=== PATIENT | female | born 1990 | race Caucasian/White ===

== ENCOUNTER → 2017-09-09 | Outpatient (CLI) | payer OTHER ==
[2017-09-12 04:12] LABS: CHLAMYDIA TRACHOMATIS, NAA Negative (Negative); NEISSERIA GONORRHOEAE, NAA Negative (Negative)
== END ==
LOC: LAB SHORT 15:23 → LAB 15:23
PROVIDERS: Obstetrics & Gynecology
DX: Z11.3 Encounter for screening for infections with a predominantly sexual mode of transmission (principal)
CPT/HCPCS: 87491; 87591

== ENCOUNTER → 2017-12-18 | Outpatient (CLI) | payer OTHER ==
[2017-12-19 09:19] LABS: Candida species (DNA Probe) Negative (NEGATIVE); G. vaginalis (DNA Probe) Positive (NEGATIVE); T. vaginalis (DNA Probe) Negative (NEGATIVE)
== END | disposition home or self-care (01) ==
LOC: LAB 18:05 → LAB SHORT 18:05
PROVIDERS: Obstetrics & Gynecology
DX: N76.0 Acute vaginitis (principal)
CPT/HCPCS: 87480; 87510; 87660

== ENCOUNTER → 2019-05-18 | Outpatient (CLI) | payer OTHER ==
[~2019-05-18] MED LIST: IBUP800 PO; Percocet 5-3251 EACH PO; RANI150EL PO; Verotin-Gr Cap1 EACH PO
[2019-05-20 14:09] LABS: HPV 16 Negative (Negative); HPV 18 Negative (Negative); HPV OTHER HR TYPES Negative (Negative)
== END | disposition home or self-care (01) ==
LOC: LAB 18:10 → LAB SHORT 18:10
PROVIDERS: Family Medicine
DX: Z12.4 Encounter for screening for malignant neoplasm of cervix (principal)
CPT/HCPCS: 87624; G0123

== ENCOUNTER 2020-08-14 18:40 | Inpatient (IN) | payer OTHER ==
[~2020-08-14] VITALS: Ht 165.1 cm; Wt 75.2 kg
[2020-08-14 19:12] LABS: BASOPHILS ABSOLUTE AUTO 0.09 K/mm3 (0.00-0.23); BASOPHILS PERCENT AUTO 1 % (0-2); EOSINOPHILS ABSOLUTE AUTO 0.47 K/mm3 (0.00-0.68); EOSINOPHILS PERCENT AUTO 3 % (0-6); Hematocrit 46.6 % (33.0-51.0); Hemoglobin 15.3 g/dL (11.5-16.0); IMMATURE GRAN ABSOLUTE AUTO 0.05 K/mm3 (0.00-0.10); IMMATURE GRAN PERCENT AUTO 0 % (0-1); LYMPHOCYTES PERCENT AUTO 11 % (21-46); MONOCYTES ABSOLUTE AUTO 0.83 K/mm3 (0.16-1.47); MONOCYTES PERCENT AUTO 6 % (4-13); Mean Corpuscular HGB 28.8 pg (26.0-34.0); Mean Corpuscular HGB Conc 32.8 g/dL (31.5-36.5); Mean Corpuscular Volume 88 fL (80-100); Mean Platelet Volume 9.4 fL (9.1-12.4); NEUTROPHILS ABSOLUTE AUTO 12.05 K/mm3 (1.96-9.15); NEUTROPHILS PERCENT AUTO 80 % (41-73); Platelet Count 407 K/mm3 (150-400); RDW Standard Deviation 44.7 fL (35.1-46.3); Red Blood Cell Count 5.31 M/mm3 (3.80-5.20); White Blood Cell Count 15.09 K/mm3 (4.00-11.30)
[2020-08-14 19:13] LABS: PCO2 Arterial 48.3 mmHg (35-45); pH Blood Arterial 7.36 (7.35-7.45)
[2020-08-14 19:14] LABS: PO2 Arterial 75.5 mmHg (80-100)
[2020-08-14 19:27] LABS: Alanine Aminotransfer (ALT/SGP 29 U/L (12-78); Albumin, Blood 4.7 g/dL (3.4-5.0); Albumin/Globulin Ratio 1.2 (0.8-1.8); Alk Phos 81 U/L (50-136); Anion Gap 8 mmol/L (6-16); Aspartate Aminotrans (AST/SGOT 19 U/L (12-37); Bilirubin, Total 0.3 mg/dL (0.1-1.0); Blood Urea Nitrogen 14 mg/dL (8-24); Bun/Creatinine Ratio 19.3 (12.0-20.0); CO2, Blood 27 mmol/L (21-32); Calcium, Blood 9.6 mg/dL (8.5-10.1); Chloride, Blood 105 mmol/L (98-108); Creatinine, Blood 0.72 mg/dL (0.40-1.00); Globulin, Blood 3.8 g/dL (2.2-4.0); Glomerular Filtration Rate >60 (60-); Glucose, Blood 106 mg/dL (70-99); Potassium, Blood 3.8 mmol/L (3.5-5.5); Sodium, Blood 140 mmol/L (136-145); Total Protein, Blood 8.5 g/dL (6.4-8.2); Troponin I 0.069 ng/mL (0.000-0.040)
[2020-08-14] MEDS ORDERED: VITAMIN D32000 UNI1 PO (19:56)
[2020-08-14] MEDS ORDERED: Hair, Skin & N1 EACH PO (19:57)
[2020-08-14] MEDS ORDERED: MAGNESIUM OXID500 MG PO (19:57)
[2020-08-15 01:11] LABS: Adenovirus Not Detected (NOT DETECT); Bordetella pertussis Not Detected (NOT DETECT); Chlamydophila pneumoniae Not Detected (NOT DETECT); Coronavirus 229E Not Detected (NOT DETECT); Coronavirus HKU1 Not Detected (NOT DETECT); Coronavirus NL63 Not Detected (NOT DETECT); Coronavirus OC43 Not Detected (NOT DETECT); Human Metapneumovirus Not Detected (NOT DETECT); Human Rhinovirus/Enterovirus Not Detected (NOT DETECT); Influenza A/2009-H1 Not Detected (NOT DETECT); Influenza A/H1 Not Detected (NOT DETECT); Influenza A/H3 Not Detected (NOT DETECT); Influenza B Not Detected (NOT DETECT); Mycoplasma pneumoniae Not Detected (NOT DETECT); Parainfluenza Virus 1 Not Detected (NOT DETECT); Parainfluenza Virus 2 Not Detected (NOT DETECT); Parainfluenza Virus 3 Not Detected (NOT DETECT); Parainfluenza Virus 4 Not Detected (NOT DETECT); Respiratory Syncytial Virus Not Detected (NOT DETECT); SARS-Cov-2 (COVID-19), BioFire Not Detected (NOT DETECT)
--- NOTE | 2020-08-15 06:31 | NUR ---
PCU ADMIT / SHIFT SUMMARY PT BROUGHT TO PCU-04 BY SAY FROM ER @ APPROX 0000. PT A&O X4, ABLE TO STAND AND INDEPENDENTLY AMBULATE FROM [facility] TO PCU BED. PT REPORTS BEING SOB. SPO2 > 92% ON 4L NC. PT REPORTS RA @ BASELINE W/ NO PRIOR RESP CONDITIONS. PT LUNG SOUNDS W/ EXP WHEEZE BILAT LOWER LOBES. RT TO RM PROVIDING BREATHING TX. PT VSS. MONITOR SHOWING SR-ST, HR 80's-110's. PT TEARFUL, REPORTING THIS NIGHT BEING FIRST NIGHT AWAY FROM HER 2 YR OLD SON. PT HOPEFUL TO DISCHARGE HOME TO & SON QUICKLY. PT REPORTS IMPROVEMENT IN BREATHING. WILL CONTINUE TO MONITOR & PROVIDE CARE UNTIL REPORT OFF TO DAY SHIFT RN.
[2020-08-15 07:50] LABS: BASOPHILS ABSOLUTE AUTO 0.01 K/mm3 (0.00-0.23); BASOPHILS PERCENT AUTO 0 % (0-2); EOSINOPHILS ABSOLUTE AUTO 0.01 K/mm3 (0.00-0.68); EOSINOPHILS PERCENT AUTO 0 % (0-6); Hematocrit 39.4 % (33.0-51.0); Hemoglobin 12.9 g/dL (11.5-16.0); IMMATURE GRAN ABSOLUTE AUTO 0.04 K/mm3 (0.00-0.10); IMMATURE GRAN PERCENT AUTO 0 % (0-1); LYMPHOCYTES PERCENT AUTO 3 % (21-46); MONOCYTES ABSOLUTE AUTO 0.08 K/mm3 (0.16-1.47); MONOCYTES PERCENT AUTO 1 % (4-13); Mean Corpuscular HGB 28.7 pg (26.0-34.0); Mean Corpuscular HGB Conc 32.7 g/dL (31.5-36.5); Mean Corpuscular Volume 88 fL (80-100); Mean Platelet Volume 9.6 fL (9.1-12.4); NEUTROPHILS ABSOLUTE AUTO 11.14 K/mm3 (1.96-9.15); NEUTROPHILS PERCENT AUTO 95 % (41-73); Platelet Count 306 K/mm3 (150-400); RDW Standard Deviation 44.8 fL (35.1-46.3); Red Blood Cell Count 4.49 M/mm3 (3.80-5.20); White Blood Cell Count 11.68 K/mm3 (4.00-11.30)
--- NOTE | 2020-08-15 17:36 | NUR ---
SHIFT SUMMARY; ASSUMED CARE AT 0700, REPORT FROM KALA SEVILLA. A/A/OX4 DURING SHIFT. 3L 02 VIA NC DECREASED TO RA WITH SATS MAINTAINING >94%. BREATHING TREATMENTS TODAY NEEDED. L/S CLEAR IN UPPER LOBES WITH MINIMAL WHEEZE IN LOWER LOBES. INDEPENDANT IN ROOM, STATUS CHANGED TO MEDICAL TODAY. VSS, WILL CONTINUE TO MONITOR AND TREAT UNTIL CHANGE OF SHIFT.
--- NOTE | 2020-08-16 02:43 | NUR ---
SHIFT SUMMARY: RESPIRATORY FAILURE PATIENT IS ALERT AND ORIENTED X4 WHILE AWAKE. PATIENT HAS BEEN ASLEEP MAJORITY OF THE SHIFT BUT IS EASILY AROUSABLE. HER HEART RATE DOES INCREASE BUT SHORTLY AFTER BREATHING TREATMENTS OR IV STEROIDS THEN RATE GOES TO WNL. OTHERWISE, VITAL SIGNS ARE WNL AND IS ON RA WITH OXYGEN SATS >90%. PATIENT IS VOIDING AND TOLERATING PO INTAKE. SHE CALLS APPROPRIATELY. CALL LIGHT WITHIN REACH. SHE IS CURRENTLY SLEEPING IN BED WITH EVEN/EQUAL RESP WITH HER BIOX ON. THE PLAN IS TO CONTINUE RESPIRATORY THERAPY CARE TO IMPROVE LUNG CAPACITY.
[2020-08-16] MEDS ORDERED: ALBU2.5V5 INH (09:19)
[2020-08-16] MEDS ORDERED: AZIT500 PO (09:19)
[2020-08-16] MEDS ORDERED: ALBU90OI INH (09:57)
== END 2020-08-16 11:00 | disposition home or self-care (01) | DRG 189 ==
LOC: ER 18:40 → PCU 18:41
PROVIDERS: Emergency Medicine; Nurse Practitioner Acute Care; Physician Assistant; ADMIT Internal Medicine
DX: J96.01 Acute respiratory failure with hypoxia (principal); J45.901 Unspecified asthma with (acute) exacerbation; Z20.822 Contact with and (suspected) exposure to COVID-19; R79.89 Other specified abnormal findings of blood chemistry; D72.829 Elevated white blood cell count, unspecified; R50.9 Fever, unspecified; Z87.891 Personal history of nicotine dependence
CPT/HCPCS: 0202U; 36415; 36600; 71045; 71260; 80053; 81025; 82375; 82803; 83690; 84145; 84484; 85025; 85379; 93005; 93010; 94640; 94644; 94762; 96365-59; 96375-59; 96376; 99285-25; A9270; G0378; J2920; J2930; J3475; J7030; Q9967

== ENCOUNTER → 2021-02-07 | Outpatient (CLI) | payer OTHER ==
[~2021-02-07] MED LIST changes: +ALBU2.5V5 INH; +ALBU90OI INH; +AZIT500 PO; +Hair, Skin & N1 EACH PO; +MAGNESIUM OXID500 MG PO; +VITAMIN D32000 UNI1 PO
== END | disposition home or self-care (01) ==
LOC: LAB 12:25 → LAB SHORT 12:25
DX: Z34.82 Encounter for supervision of other normal pregnancy, second trimester (principal); Z3A.21 21 weeks gestation of pregnancy
CPT/HCPCS: 87086

== ENCOUNTER → 2021-05-25 | Outpatient (CLI) | payer OTHER | END | disposition home or self-care (01) | LOC: LAB SHORT 16:46 | DX: Z34.83 Encounter for supervision of other normal pregnancy, third trimester (principal); Z3A.37 37 weeks gestation of pregnancy | CPT/HCPCS: 87081; 87150 ==

== ENCOUNTER 2021-06-02 05:04 | Inpatient (IN) | payer OTHER ==
[~2021-06-02] VITALS: Ht 165.1 cm; Wt 85.5 kg
[2021-06-02] MEDS ORDERED: PRENATAL TABLE1 EAC2 PO (05:33)
[2021-06-02 05:57] LABS: BASOPHILS ABSOLUTE AUTO 0.03 K/mm3 (0.00-0.23); BASOPHILS PERCENT AUTO 0 % (0-2); EOSINOPHILS ABSOLUTE AUTO 0.14 K/mm3 (0.00-0.68); EOSINOPHILS PERCENT AUTO 1 % (0-6); Hematocrit 39.4 % (33.0-51.0); Hemoglobin 12.9 g/dL (11.5-16.0); IMMATURE GRAN ABSOLUTE AUTO 0.09 K/mm3 (0.00-0.10); IMMATURE GRAN PERCENT AUTO 1 % (0-1); LYMPHOCYTES ABSOLUTE AUTO 2.04 K/mm3 (0.84-5.20); LYMPHOCYTES PERCENT AUTO 19 % (21-46); MONOCYTES ABSOLUTE AUTO 0.67 K/mm3 (0.16-1.47); MONOCYTES PERCENT AUTO 6 % (4-13); Mean Corpuscular HGB 28.8 pg (26.0-34.0); Mean Corpuscular HGB Conc 32.7 g/dL (31.5-36.5); Mean Corpuscular Volume 88 fL (80-100); Mean Platelet Volume 10.4 fL (9.1-12.4); NEUTROPHILS ABSOLUTE AUTO 8.08 K/mm3 (1.96-9.15); NEUTROPHILS PERCENT AUTO 73 % (41-73); Platelet Count 267 K/mm3 (150-400); RDW Coefficient Variation 15.6 % (11.7-14.2); RDW Standard Deviation 51.2 fL (35.1-46.3); Red Blood Cell Count 4.48 M/mm3 (3.80-5.20); White Blood Cell Count 11.05 K/mm3 (4.00-11.30)
--- NOTE | 2021-06-02 08:25 | NUR ---
06/02/21 0825 Vy Sandhu 0807 DELIVERY VIABLE MALE 9/9, WEIGHT 3065GM 6# 12OZ, HEAD 13.75, CHEST 13.75, LENGTH 19 INCHES, UMBILCAL CORD BLOOD COLLECTED GIVEN TO BABY RN, UMBILICAL CORD SEGMENT COLLECTED FOR CORD GASES, GIVEN TO RT
[2021-06-02 08:36] LABS: PCO2 Cord - Arterial 52.6 mmHg (40-50); PO2 Cord - Arterial 32.8 mmHg (16-20); pH Cord - Arterial 7.29 (7.28-7.35)
[2021-06-02 08:38] LABS: PCO2 Cord - Venous 47.1 mmHg (40-50); PO2 Cord - Venous 27.9 mmHg (28-32); pH Umbilical Cord - Venous 7.34 (7.26-7.35)
--- NOTE | 2021-06-02 18:46 | NUR ---
siva care done, johnson emptied, pt had door dash delivered
[2021-06-03 05:57] LABS: BASOPHILS ABSOLUTE AUTO 0.02 K/mm3 (0.00-0.23); BASOPHILS PERCENT AUTO 0 % (0-2); EOSINOPHILS ABSOLUTE AUTO 0.23 K/mm3 (0.00-0.68); EOSINOPHILS PERCENT AUTO 3 % (0-6); Hematocrit 33.7 % (33.0-51.0); Hemoglobin 10.7 g/dL (11.5-16.0); IMMATURE GRAN ABSOLUTE AUTO 0.05 K/mm3 (0.00-0.10); IMMATURE GRAN PERCENT AUTO 1 % (0-1); LYMPHOCYTES ABSOLUTE AUTO 1.75 K/mm3 (0.84-5.20); LYMPHOCYTES PERCENT AUTO 19 % (21-46); MONOCYTES ABSOLUTE AUTO 0.54 K/mm3 (0.16-1.47); MONOCYTES PERCENT AUTO 6 % (4-13); Mean Corpuscular HGB 28.3 pg (26.0-34.0); Mean Corpuscular HGB Conc 31.8 g/dL (31.5-36.5); Mean Corpuscular Volume 89 fL (80-100); Mean Platelet Volume 10.2 fL (9.1-12.4); NEUTROPHILS ABSOLUTE AUTO 6.74 K/mm3 (1.96-9.15); NEUTROPHILS PERCENT AUTO 72 % (41-73); Platelet Count 198 K/mm3 (150-400); RDW Coefficient Variation 15.7 % (11.7-14.2); Red Blood Cell Count 3.78 M/mm3 (3.80-5.20); White Blood Cell Count 9.33 K/mm3 (4.00-11.30)
--- NOTE | 2021-06-03 09:59 | NUR ---
PT TOLERATED WELL
[2021-06-03] MEDS ORDERED: IBUP800 PO (12:49)
[2021-06-03] MEDS ORDERED: Percocet 5-3251 EACH PO (12:50)
--- NOTE | 2021-06-03 14:22 | NUR ---
1415 DISCHARGE TEACHING COMPLETED, NO QUESTIONS AT THIS TIME, ESCORTED PT OUT TO CAR, CARRING NB IN CARSEAT
== END 2021-06-03 14:30 | disposition home or self-care (01) | DRG 787 ==
LOC: BC 05:04
PROVIDERS: ADMIT Family Medicine
PROC: 10D00Z1 Extraction of Products of Conception, Low, Open Approach (ICD-10-PCS; principal; 2021-06-02 07:30)
DX: O13.4 Gestational [pregnancy-induced] hypertension without significant proteinuria, complicating childbirth (principal); O41.03X0 Oligohydramnios, third trimester, not applicable or unspecified; O24.429 Gestational diabetes mellitus in childbirth, unspecified control; O34.211 Maternal care for low transverse scar from previous cesarean delivery; Z37.0 Single live birth; Z3A.38 38 weeks gestation of pregnancy; Z67.40 Type O blood, Rh positive; Z79.899 Other long term (current) drug therapy
CPT/HCPCS: 36415; 82803; 82947; 85025; 86850; 86900; 86901; A9270; J0690; J1885; J2370; J2405; J2765; J3010; J7120

== ENCOUNTER → 2024-07-20 | Outpatient (CLI) | payer OTHER ==
[~2024-07-20] MED LIST changes: +PRENATAL TABLE1 EAC2 PO
== END | disposition home or self-care (01) ==
LOC: LAB SHORT 19:17 → LAB 19:17
DX: N39.0 Urinary tract infection, site not specified (principal); R31.9 Hematuria, unspecified
CPT/HCPCS: 87077; 87086; 87186